=== PATIENT | male | born 1960 | race Hispanic/Latino ===

== ENCOUNTER 2018-01-25 07:27 | Day surgery (SDC) | payer BC ==
[2018-01-18 12:10] VITALS: BMI 34.9
[2018-01-25 08:28] VITALS: O2SAT 96
[2018-01-25] MEDS ORDERED: Iohexol 350mgl/ml 50 ML ONE (09:55)
[2018-01-25] MEDS ORDERED: Iodixanol 320 MG/ML 200 ML BOTTLE IV ONE (09:55)
[2018-01-25] MEDS ORDERED: Iodixanol 320 MG/ML 100 ML BOTTLE IV ONE (09:55)
[2018-01-25] MEDS ORDERED: Phenylephrine 10 mg/ml Inj ONE (09:57)
[2018-01-25] MEDS ORDERED: Nitroglycerin 50mg in D5W 0 MG/0 ML BOTTLE IV ONE (09:57)
[2018-01-25] MEDS ORDERED: Midazolam 2 MG/2 ML VIAL ONE ×2 (10:13→10:19)
[2018-01-25] MEDS ORDERED: Sodium Chloride 0.45% 1,000 ML IV SCH (11:00)
[2018-01-25 12:20] VITALS: RESP 18; TEMP 97.6
--- NOTE | 2018-01-25 14:13 | CARD ---
APPROVED REPORT Date of service: 01/25/2018 EKG Measurement Heart [id number] <Conclusion> Sinus bradycardia Otherwise normal ECG
[2018-01-25 17:35] VITALS: BP 141/88; PULSE 64
--- NOTE | 2018-01-25 19:57 | CARDCATH ---
Copied To: Micah Luther MD Attending MD: Micah Luther MD PROCEDURE DATE: 01/25/2018 CARDIAC CATHETERIZATION REPORT PROCEDURES: 1. Selective left and right coronary angiography. 2. Left ventriculography. 3. Percutaneous coronary intervention of LAD with drug-eluting stent. 4. Right femoral arteriography. 5. Angio-Seal deployment. HISTORY: This is a 57-year-old man with a history of hypertension and hyperlipidemia, who underwent a recent cardiac calcium score assessment. This was reportedly markedly elevated with a calcium score of 2938. Given his risk factors and findings, a cardiac catheterization was advised. INDICATIONS: As above. FINDINGS: HEMODYNAMICS: Aortic pressure was 130/70, left ventricular pressure 130/16. CORONARY ANATOMY: 1. The left main stem was mildly calcified and normal. 2. Left anterior descending artery had extensive moderate calcification throughout its proximal and mid portion. The proximal vessel had an 80% eccentric lesion present. In the late proximal and early mid segment of the vessel, there was a long diffuse 50% narrowing present. The first diagonal branch had mild proximal disease. The distal LAD had minimal disease. 3. Left circumflex artery was dominant and had mild diffuse irregularities with [id number] calcification proximally. 4. Right coronary artery was small and nondominant. LEFT VENTRICULOGRAPHY: A hand injection was performed of the left ventricle and revealed normal wall motion with an ejection fraction of 55%. CORONARY INTERVENTION: Given the above findings, an attempted PCI of the proximal LAD was then performed. A 4.0 EBU guide catheter was utilized and the lesion in the LAD successfully crossed with the use of a Franklin wire. The ACT was greater than 250 seconds during the procedure. IV heparin had been administered. Initial inflations were performed in the proximal LAD utilizing a 3.0 x 15 noncompliant balloon. This was then exchanged for a 3.5 x 22 mm Resolute drug-eluting stent. This was inflated to 14 atmospheres for 45 seconds. There was 0% residual stenosis following stent deployment with no evidence of suboptimal apposition angiographically. The moderate disease in the mid vessel remained unchanged that was not treated. JEAN grade III flow was present before and after the intervention. RIGHT FEMORAL ARTERIOGRAPHY: The right femoral arteriogram was performed in the MAECDO projection. This revealed no evidence of significant disease and appropriate level of arterial puncture. The puncture site was then closed with deployment of an Angio-Seal device. CONCLUSION: 1. Severe proximal left anterior descending disease and moderate mid left anterior descending disease. 2. Normal left ventricular systolic function. 3. Successful percutaneous coronary intervention of proximal left anterior descending as described above with drug-eluting stent. RECOMMENDATIONS: Aspirin and Plavix therapy will be continued for at least one year. Intensified statin therapy will be initiated as well, aggressive risk factor control was advised. Micah Luther MD cc: Rasheed Springer MD
== END 2018-01-25 18:02 | disposition home or self-care (01) ==
LOC: CATH 07:27 → 2RSO 11:19 → CATH 18:02
PROVIDERS: ATTEND Internal Medicine Cardiovascular Disease
DX: I25.10 Atherosclerotic heart disease of native coronary artery without angina pectoris (principal); I10 Essential (primary) hypertension; E78.5 Hyperlipidemia, unspecified
CPT/HCPCS: 36415; 85175; 86850; 86900; 93005; 93458; 99152; 99153; C1725; C1769 ×2; C1874; C1887 ×2; C2629; C9600; J1644 ×2; J2250; J3010; J7030; Q9966; Q9967